=== PATIENT | female | born 1960 | race Caucasian/White ===

== ENCOUNTER 2018-11-08 15:54 | Emergency (ER) | payer OTHER ==
[~2018-11-08] VITALS: Ht 160 cm; Wt 131.5 kg
[~2018-11-08 15:54] MED LIST: ASPI325 PO; BACL10 PO; CIPR500 PO; CRUTCH2 USE; CRUTCH4 USE; DIPH50 PO; ENOX80I SQ; FERSU300 PO; HYDACE5 PO; IBUP800; IBUP800 PO; LEVSOD150; LEVSOD175 PO; LEVSOD200 PO; LISI5 PO; METO100ER; NITR100CA PO; OXYACE5T PO; OXYC5; PHENA200 PO; RANI150 PO; RXPHEN200 PO; STOMUL PO; SULTRIDS PO; VALS80 PO; WARF5 PO; [UNRECOGNIZED DRUG - OTHER] PO
[2018-11-08] MEDS ORDERED: LEVOXYL88 MCG PO (16:01)
[2018-11-08] MEDS ORDERED: METO25ER PO (16:02)
[2018-11-08] MEDS ORDERED: FOLBIC RF TABL1 EACH PO (16:02)
[2018-11-08] MEDS ORDERED: FURO20 PO (16:02)
[2018-11-08] MEDS ORDERED: HYDSUL200 PO (16:02)
[2018-11-08] MEDS ORDERED: ROPI.25 PO (16:03)
[2018-11-08] MEDS ORDERED: Prednisone20 MG PO (16:06)
== END 2018-11-08 16:37 | disposition home or self-care (01) ==
LOC: ER 15:54
DX: T63.441A Toxic effect of venom of bees, accidental (unintentional), initial encounter (principal); I10 Essential (primary) hypertension; E03.9 Hypothyroidism, unspecified; M06.9 Rheumatoid arthritis, unspecified; Z88.2 Allergy status to sulfonamides; Z79.899 Other long term (current) drug therapy
CPT/HCPCS: 96372; 99283-25; J2930

== ENCOUNTER → 2019-02-06 | Outpatient (CLI) | payer MEDICARE, OTHER ==
[~2019-02-06] MED LIST changes: +FOLBIC RF TABL1 EACH PO; +FURO20 PO; +HYDSUL200 PO; +LEVOXYL88 MCG PO; +METO25ER PO; +Prednisone20 MG PO; +ROPI.25 PO
== END | disposition home or self-care (01) ==
LOC: LAB SHORT 09:00 → LAB 09:00
DX: N39.0 Urinary tract infection, site not specified (principal)
CPT/HCPCS: 87086